=== PATIENT | male | born 1945 | race Caucasian/White ===

== ENCOUNTER 2016-12-22 13:40 | Observation (INO) | payer MEDICARE, OTHER ==
[2016-12-22] MEDS ORDERED: ASPIRIN CHEWTAB 81 MG TABLET ONE (14:51)
[2016-12-22 15:04] LABS: ALB/GLOB RATIO 1.1 (>1.0); ALBUMIN 4.1 gm/dL (3.5-5.7); CALCIUM 10.5 mg/dL (8.6-10.3)
[2016-12-22 15:09] LABS: ABSOLUTE NEUTROPHIL COUNT 7.6 K/mm3 (1.8-7.7); BASO # 0.1 K/mm3 (0.0-0.2); BASO % 0.9 % (0.2-1.0); EOS # 0.4 (0.0-0.5); EOS % 3.4 % (0.9-2.9); HEMOGLOBIN 14.2 gm/l (14.0-18.0); IMM NEUT # 0.1 K/mm3 (0-0.2); IMM NEUT% 0.5 % (0-1); LYMPH # 2.7 (1.0-4.8); LYMPH % 22.9 % (15-45); MEAN CORPUSCULAR HEMOGLOBIN 28.1 pg (27.0-31.0); MEAN CORPUSCULAR HGB CONC 32.3 g/dl (33.0-37.0); MEAN PLATELET VOLUME 10.2 fl (7.4-10.4); MONO # 0.9 (0.0-0.8); MONO % 7.4 % (4-12); NEUT % 64.9 % (43-75); PLATELET COUNT 117 K/mm3 (130-400); RED CELL DISTRIBUTION WIDTH 13.2 % (11.5-14.5)
[2016-12-22 15:10] LABS: TROPONIN I 0.01 ng/ml (0.0-0.06)
[2016-12-22 15:14] LABS: CKMB ISOENZYME 3.8 ng/ml (0.6-6.3)
--- NOTE | 2016-12-22 15:38 | RAD ---
12/22/2016 3:34 PM CHEST - 2 VIEWS History: Chest pain, history is asthma and COPD. Comparison: None Findings: Two views of the chest are obtained. The lungs are clear with out effusion or pneumothorax. The cardiomediastinal silhouette is unremarkable.. The osseous structures are intact.. Eventration of the right hemidiaphragm is present. IMPRESSION: No acute intrathoracic process.
[2016-12-22] MEDS ORDERED: REGADENOSON 0.1 MG DOSE IV ONE (16:39)
[2016-12-22] MEDS ORDERED: BISACODYL 10 MG SUP PR PRN (17:05)
[2016-12-22] MEDS ORDERED: SODIUM CHLORIDE 0.9% 100 ML IV PRN (17:05)
[2016-12-22] MEDS ORDERED: MAGNESIUM HYDROXIDE 30 ML UDCUP PO PRN (17:05)
[2016-12-22] MEDS ORDERED: BISACODYL 5 MG TABLET.EC PO PRN (17:05)
[2016-12-22] MEDS ORDERED: ACETAMINOPHEN 325 MG TABLET PO PRN (17:05)
[2016-12-22] MEDS ORDERED: MENTHOL/CETYLPYRD 1 EACH LOZENGE PO PRN (17:05)
[2016-12-22] MEDS ORDERED: BLISTEX LIPSTICK 1 EACH TP PRN (17:05)
[2016-12-22] MEDS ORDERED: ALBUTEROL NEB 2.5 MG/3 ML VIAL.NEB NEB PRN (17:38)
[2016-12-22 17:46] VITALS: BMI 36.9
[2016-12-22] MEDS ORDERED: INSULIN ASPART (DOSE) 100 UNITS/1 ML SUB-Q PRN ×2 (18:32→19:28)
--- NOTE | 2016-12-22 21:00 | HP ---
TIMOTHY TONG [id number] CHIEF COMPLAINT: Left arm tingling. HISTORY OF PRESENT ILLNESS: The patient is a 71-year-old male with a past medical history significant for coronary artery disease, diabetes and hypertension who presented to the [facility] Emergency Department due to concerns about some left arm numbness which came on today while he was driving. He was able to rest his arm and his symptoms improved, but then his hand went numb a few minutes later. He noticed some dull right-sided chest pressure five minutes after that, but his symptoms all resolved spontaneously. He presented to the [facility] Emergency Department for further evaluation. Workup there was negative, but he did have some nonspecific ST depression, new on his EKG, prompting referral to the Hospitalist Service for observation. REVIEW OF SYSTEMS: Negative for any recent fevers or chills. He has had no recent upper respiratory symptoms, cough, dyspnea, wheezing, shortness of breath or palpitations. He denies any orthopnea or lower extremity edema. No nausea or vomiting. No diarrhea or constipation. No abdominal pain. He denies any new arthralgias. He has had some headaches recently, but he attributes that to problems with his glasses. He denies any fainting, blackouts or seizures. He has had no urinary complaints. His review of systems is otherwise negative. PAST MEDICAL HISTORY: Significant for: 1. Evidence of prior coronary artery disease detected on a Lexiscan perfusion study in 2013, with a moderate posterior perfusion defect. His ejection fraction at that time was 62%, with no reversible ischemic findings. He had a cardiac catheterization in 2015, as well showing some mild nonobstructive coronary artery disease. 2. He has adult-onset diabetes and has had this treated with oral medications for several years. 3. He has had a history of hypertension for about six years. 4. He has a history of obstructive sleep apnea with chronic respiratory failure, on BiPAP therapy at night for the past ten years. He also recently started on home oxygen while he is sleeping as well. 5. He has a history of a chronic right bundle branch block on EKG, as well as persistent atrial fibrillation, rate controlled and anticoagulated with Xarelto, followed by [facility]. 6. 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 7. He has also had some asthma; this is mild intermittent. 8. Some gastroesophageal reflux disease. 9. He has had some degenerative disk disease involving the cervical and lumbar spine. PAST SURGICAL HISTORY: Significant for: 1. Epidural steroid injections in the neck and lower back off and on through the years. 2. He had a coronary catheterization in September of 2015. 3. He had thyroid cysts removed in the year 1999. 4. Appendectomy in 1961. 5. Bilateral arthroscopic surgeries his knees in the . 6. Elective cardioversion in September of 2016. 7. He had a screening colonoscopy in I believe 2006. ALLERGIES: Mushrooms, penicillin, Zithromax and isosorbide according to his medical record. CURRENT MEDICATIONS: Consist of: 1. Albuterol metered-dose inhaler one to two puffs every four hours as needed for wheezing. 2. Singulair 10 mg daily. 3. Cardizem CD 360 mg by mouth daily. 4. Lanoxin 0.25 mg by mouth daily. 5. Xarelto 20 mg by mouth daily. 6. Celexa 20 mg by mouth daily. 7. Janumet XR 50/1,000 mg two pills daily. 8. Centrum Silver one daily. 9. Glucosamine complex with MSM one daily. 10. Advair 250/50 mcg discus inhaler one puff twice daily. 11. Diovan/HCT 160/12.5 mg once daily. 12. Protonix 20 mg once daily. FAMILY HISTORY: Significant for a father who of coronary artery disease in his 80's. His mother of lung cancer in her 70's. SOCIAL HISTORY: He is a former smoker of about 35-40 pack-years. He quit in 1996. He drinks about four or five cups of coffee a day. He denies alcohol or illicit drug use. He has no biological children, but has an adopted daughter. He is currently in his second marriage and lives with his . He is . He is retired. His primary care provider is Lori Adams Nurse Practitioner. PHYSICAL EXAMINATION: VITAL SIGNS: Blood pressure 145/72. Pulse 86. Respirations 18. Oxygen saturation is 93% on room air. Temperature is 98.3. Body mass index and weight have not yet been measured. GENERAL: This is an obese, probably morbidly obese, male in no acute distress. HEENT: Unremarkable. NECK: Supple, without lymphadenopathy or thyromegaly. LUNGS: Clear to auscultation bilaterally. CARDIOVASCULAR: Reveals a regular rate and rhythm, without a murmur. ABDOMEN: Obese, soft, nontender and nondistended, with positive bowel sounds. EXTREMITIES: Show no peripheral edema. NEUROLOGIC: Exam is nonfocal. LABS: CBC shows a white count of 11.8, hemoglobin of 14.2 and platelet count is 117,000. Chemistry profile showed a sodium of 141, potassium 4.3, carbon dioxide 31, BUN of 19, creatinine 1.2 and glucose 99. Normal liver function tests. Normal cardiac enzymes. IMAGING: A two view chest x-ray shows no acute cardiopulmonary abnormalities. EKG: A 12-lead EKG shows atrial fibrillation with slow ventricular response. He has evidence of a right bundle branch block. There is some nonspecific ST depression. ASSESSMENT: 1. Patient has chest pain and some left arm tingling, concerning for possible anginal equivalent. He is referred to the Hospitalist Service for observation. He will be placed on telemetry. We will get serial cardiac enzymes. We will also get a fasting lipid profile in the morning. If his enzymes are normal and he is stable, we will likely get a Lexiscan myocardial perfusion study prior to discharge. 2. He has adult-onset diabetes, and we will continue his usual medicines for that. 3. He has chronic essential hypertension. Will continue his usual antihypertensive therapy. 4. He has morbid obesity, and this complicates his care. 5. He has a history of obstructive sleep apnea with chronic respiratory failure. He has forgotten his BiPAP. We will try and arrange for him to get BiPAP therapy overnight, also with supplemental oxygen. 6. He has some chronic persistent atrial fibrillation. We will continue his rate control meds, as well as his Xarelto. If his lipid profile shows an LDL over 100, will consider statin therapy. 7. Further treatment and recommendations will depend on his hospital course. He should be on an aspirin a day, and will review this with the patient and continue that here in the hospital. cc: JENNIFER Wagner
[2016-12-22] MEDS: FLUTICASONE/SALMETEROL 250/50 14 PUFFS/DISK IH SCH (21:02)
[2016-12-22] MEDS: DOCUSATE SODIUM 100 MG CAPSULE PO SCH (21:02)
[2016-12-23 06:16] LABS: CHOLESTEROL RISK RATIO 3.8 (4.0-6.7)
[2016-12-23 06:26] LABS: TROPONIN I < 0.01 ng/ml (0.0-0.06)
[2016-12-23] MEDS ORDERED: HYDROCHLOROTHIAZIDE 12.5 MG CAP PO SCH (09:00)
[2016-12-23] MEDS ORDERED: ASPIRIN (UNCOATED) 325 MG TABLET PO SCH (09:00)
[2016-12-23] MEDS ORDERED: RIVAROXABAN 10 MG TABLET PO SCH (09:00)
[2016-12-23] MEDS ORDERED: SITAGLIPTIN PO SCH ×2 (09:00)
[2016-12-23] MEDS ORDERED: VALSARTAN PO SCH (09:00)
[2016-12-23] MEDS ORDERED: DILTIAZEM HCL CD 180 MG CAPSULE PO SCH (09:00)
[2016-12-23] MEDS ORDERED: METFORMIN XR 500 MG TAB.XL PO SCH ×2 (09:00)
[2016-12-23] MEDS ORDERED: METFORMIN PO SCH ×2 (09:00)
[2016-12-23] MEDS ORDERED: SITAGLIPTIN PHOSPHATE 100 MG TABLET PO SCH (09:00)
[2016-12-23] MEDS ORDERED: PANTOPRAZOLE SODIUM 20 MG TABLET.DR PO SCH (09:00)
[2016-12-23] MEDS ORDERED: MONTELUKAST SODIUM 10 MG TABLET PO SCH (09:00)
[2016-12-23] MEDS ORDERED: HYDROCHLOROTHIAZIDE PO SCH (09:00)
[2016-12-23] MEDS ORDERED: VALSARTAN 80 MG TABLET PO SCH (09:00)
[2016-12-23] MEDS ORDERED: [UNRECOGNIZED DRUG - OTHER] PO SCH (09:00)
[2016-12-23] MEDS ORDERED: CITALOPRAM HYDROBROMIDE 20 MG TABLET PO SCH (09:00)
[2016-12-23] MEDS: FLUTICASONE/SALMETEROL 250/50 14 PUFFS/DISK IH SCH (09:27)
[2016-12-23] MEDS: DOCUSATE SODIUM 100 MG CAPSULE PO SCH (09:29)
[2016-12-23] MEDS ORDERED: FLUTICASONE/SALMETEROL 250/50 14 PUFFS/DISK IH SCH (10:30)
[2016-12-23] MEDS ORDERED: DIGOXIN 0.25 MG TABLET PO SCH (12:00)
--- NOTE | 2016-12-23 16:06 | NUC MED ---
MYOCARDIAL PERFUSION STUDY HISTORY: Chest pain. Pharmacologic stress protocol was utilized. 0.4 mg of Lexiscan was administered as pharmacologic stress. Triplanar orthogonal images were reconstructed from SPECT acquisitions during rest and stress phases, gated SPECT acquisition during stress imaging utilized to assess wall motion and ejection fraction. 44.1 mCi of technetium labeled sestamibi was utilized during stress imaging. 13.7mCi of technetium labeled sestamibi was utilized during rest imaging. Imaging was reconstructed on a dedicated workstation WALL MOTION: Grossly concentric. EJECTION FRACTION: 68%. PERFUSION DEFECTS: No gross reversible defect. Small fixed defect of the apical inferior aspect. ABNORMAL RIGHT HEART UPTAKE: None identified. LEFT VENTRICULAR CAVITY DILATATION WITH STRESS: Not identified. IMPRESSION: No scintigraphic evidence of focal inducible ischemia. Small fixed apical inferior defect, diaphragmatic artifact favored over nontransmural infarct. Grossly concentric wall motion, ejection fraction 68%. Findings discussed with Dr. Marmolejo of the hospitalist clinical service on 12/23/16 at 1602 hours.
[2016-12-23 16:38] VITALS: BP 140/70
--- NOTE | 2016-12-23 18:44 | DS ---
TIMOTHY TONG [id number] ADMIT DATE: 12/22/2016 DISCHARGE DATE: 12/23/2016 ADMITTING DIAGNOSES: 1. Left arm tingling, concerning for possible anginal equivalent. 2. Underlying CAD. 3. Diabetes. 4. Hypertension. 5. Obesity. 6. Obstructive sleep apnea. DISCHARGE DIAGNOSES: 1. Left arm tingling, concerning for possible anginal equivalent. 2. Underlying CAD. 3. Diabetes. 4. Hypertension. 5. Obesity. 6. Obstructive sleep apnea. 7. Negative workup, negative Lexiscan. ADMIT HISTORY AND PHYSICAL: Please see Dr. Omalley's note for details. Briefly, Timothy is a 71-year-old male with known underlying CAD. He had a catheterization on 10/06 that showed mild diffuse disease by report. He had onset of some left arm tingling prior to admission, also associated with maybe some transient right-sided chest pain. The symptoms resolved by the time he got to the hospital. In the ER he was worked-up and found to have his baseline atrial fibrillation and a negative workup otherwise. After discussion with cardiology, it was elected to refer him to observation to the Hospitalist Service to rule-out ND and stress testing. HOSPITAL COURSE: He remained pain-free throughout his hospitalization. Cardiac enzymes remained negative. On the afternoon of 12/23/2016 he underwent a Lexiscan Myoview, which showed a fixed inferior defect which was felt to most likely be artifact. He had an ejection fraction of 68%. There were no other abnormalities and no reversible defect. It was elected to discharge him home on his usual medications, with plans for outpatient follow-up with his regular physician. DISCHARGE MEDICATIONS: As prior to admit as follows: 1. Ventolin one to two puffs every four hours as needed. 2. Advair 250/50 one puff inhaled twice a day. 3. Glucosamine chondroitin one by mouth every day. 4. Multivitamin every day. 5. Protonix 20 mg by mouth every day. 6. Valsartan/hydrochlorothiazide one by mouth every day. 7. Citalopram 20 mg by mouth every day. 8. Digoxin 0.25 mg by mouth every day. 9. Diltiazem 360 by mouth every day. 10. Singulair 10 mg by mouth every day. 11. Xarelto 20 mg by mouth every morning. 12. Sitagliptin/metformin two by mouth every day. DISCHARGE FOLLOW-UP: With his regular provider, JENNIFER Wagner, as scheduled next week. cc: JENNIFER Wagner
== END 2016-12-23 16:45 | disposition home or self-care (01) ==
LOC: ED 13:40 → MS 16:38 → INTOOBSV 16:38
PROVIDERS: ADMIT Family Medicine; ATTEND Family Medicine
DX: G81.91 Hemiplegia, unspecified affecting right dominant side (principal); I25.10 Atherosclerotic heart disease of native coronary artery without angina pectoris; E11.9 Type 2 diabetes mellitus without complications; I10 Essential (primary) hypertension; R20.0 Anesthesia of skin; F32.9 Major depressive disorder, single episode, unspecified; Z79.84 Long term (current) use of oral hypoglycemic drugs; G47.33 Obstructive sleep apnea (adult) (pediatric); I45.10 Unspecified right bundle-branch block; E66.9 Obesity, unspecified; J45.20 Mild intermittent asthma, uncomplicated; Z99.81 Dependence on supplemental oxygen
CPT/HCPCS: 85025; 82553; 80162; 80053; 80061; 84484 ×3; 36415 ×2; 71020; 78452; 99284; 93017; 93005 ×2; 96372; 99285; A9270 ×10; J2785; J1815; A9500; G0378 ×2

== ENCOUNTER 2016-12-24 19:04 | Emergency (ER) | payer OTHER, MEDICARE | END 2016-12-24 20:02 | disposition home or self-care (01) | LOC: ED 19:04 | DX: S61.452A Open bite of left hand, initial encounter (principal); Y04.1XXA Assault by human bite, initial encounter; E66.9 Obesity, unspecified; I25.2 Old myocardial infarction; E11.9 Type 2 diabetes mellitus without complications; K21.9 Gastro-esophageal reflux disease without esophagitis; I10 Essential (primary) hypertension; J45.909 Unspecified asthma, uncomplicated; J44.9 Chronic obstructive pulmonary disease, unspecified; G47.30 Sleep apnea, unspecified; Z87.891 Personal history of nicotine dependence; Z79.01 Long term (current) use of anticoagulants; Z79.84 Long term (current) use of oral hypoglycemic drugs; Z79.51 Long term (current) use of inhaled steroids; Z79.899 Other long term (current) drug therapy; Z88.0 Allergy status to penicillin ==